=== PATIENT | male | born 1970 | race African-American/Black ===

== ENCOUNTER 2017-03-15 03:57 | Emergency (ER) | payer OTHER ==
[~2017-03-15] VITALS: Ht 180.3 cm; Wt 102.9 kg
[2017-03-15] MEDS ORDERED: LORazepam 1MG TABLET ONE (05:30)
[2017-03-15] MEDS ORDERED: LORazepam 1MG TABLET PO ONE (05:30)
[2017-03-15 06:09] VITALS: BP 167/105
== END 2017-03-15 06:43 | disposition home or self-care (01) ==
LOC: ED 06:30
DX: F25.8 Other schizoaffective disorders (principal); F10.10 Alcohol abuse, uncomplicated; F12.10 Cannabis abuse, uncomplicated; F15.10 Other stimulant abuse, uncomplicated
CPT/HCPCS: 93005; 99283; 99284

== ENCOUNTER 2017-03-16 14:43 | Emergency (ER) | payer SELFPAY ==
[~2017-03-16] VITALS: Ht 180.3 cm; Wt 109.1 kg
[2017-03-16 14:47] VITALS: BP 163/113
[2017-03-16] MEDS ORDERED: LORazepam 1MG TABLET PO ONE (15:30)
== END 2017-03-16 15:51 | disposition home or self-care (01) ==
LOC: ED 15:17
DX: F15.950 Other stimulant use, unspecified with stimulant-induced psychotic disorder with delusions (principal)
CPT/HCPCS: 99284